=== PATIENT | female | born 2000 ===

== ENCOUNTER 2022-03-18 06:14 | Inpatient (IN) | payer OTHER ==
[~2022-03-18] VITALS: Ht 167.6 cm; Wt 68.0 kg
== END 2022-03-20 12:10 | disposition home or self-care (01) | DRG 743 ==
LOC: CIR.AMB 06:14 → OB/GYN 14:14
PROVIDERS: ADMIT Specialist; ATTEND Specialist
PROC: 0U7 Female Reproductive System, Dilation (ICD-10-PCS; 2022-03-18)
PROC: 0UB94ZZ Excision of Uterus, Percutaneous Endoscopic Approach (ICD-10-PCS; principal; 2022-03-18 11:00)
DX: D25.9 Leiomyoma of uterus, unspecified (principal); Z20.822 Contact with and (suspected) exposure to COVID-19